=== PATIENT | female | born 1930 | race African-American/Black ===

== ENCOUNTER 2017-01-29 16:40 | Inpatient (IN) | payer MEDICARE, OTHER ==
[~2017-01-29] VITALS: Ht 157.5 cm; Wt 49.7 kg
[2017-01-29] MEDS ORDERED: INSULIN REGULAR, HUMAN 100 UNITS/ML IVP ONE (17:00)
[2017-01-29] MEDS ORDERED: SODIUM CHLORIDE 0.9% 500 ML IV ONE (17:00)
[2017-01-29 17:02] LABS: GLUCOSE,POINT OF CARE 265 MG/DL (70-110)
[2017-01-29] MEDS ORDERED: SIMV20 PO (17:14)
[2017-01-29] MEDS ORDERED: AMLO-511 PO (17:14)
[2017-01-29] MEDS ORDERED: METF500T4 PO (17:14)
[2017-01-29] MEDS ORDERED: LISI-660 PO (17:14)
[2017-01-29] MEDS ORDERED: METO50 PO (17:14)
[2017-01-29] MEDS ORDERED: HYDR25TA PO (17:14)
[2017-01-29] MEDS ORDERED: IBUP-1681 PO (17:14)
[2017-01-29 17:26] LABS: BASOPHILS % (AUTO) 0.5 % (0.0-2.0); EOSINOPHILS % (AUTO) 2.6 % (1.0-6.0); HEMATOCRIT 36.8 % (36-46); HEMOGLOBIN 11.5 g/dL (12.0-16.0); LYMPHOCYTES # (AUTO) 1.7 K/uL (1.0-4.8); LYMPHOCYTES % (AUTO) 35.2 % (22.0-44.0); MEAN CORPUSCULAR HEMOGLOBIN 26.1 pg (26.0-34.0); MEAN CORPUSCULAR HGB CONC 31.2 G/dL (31.0-37.0); MEAN CORPUSCULAR VOLUME 84 fL (80-100); MONOCYTES # (AUTO) 0.6 K/uL (0.1-1.0); MONOCYTES % (AUTO) 12.2 % (2.0-9.0); NEUTROPHILS # (AUTO) 2.4 K/uL (1.8-7.7); NEUTROPHILS % (AUTO) 49.5 % (40.0-70.0); PLATELET COUNT (AUTO) 143 K/uL (150-450); RED BLOOD CELL COUNT(AUTO) 4.39 MIL/uL (4.00-5.20); RED CELL DISTRIBUTION WIDTH 14.2 % (11.5-14.5); WHITE BLOOD COUNT (AUTO) 4.9 K/uL (4.5-11.0)
[2017-01-29 17:35] LABS: ANION GAP 8 mmol/L (8-16); CALCIUM, TOTAL 9.2 mg/dL (8.8-10.5); CARBON DIOXIDE 27 mmol/L (22-29); CHLORIDE 102 mmol/L (98-107); CREATININE 1.11 mg/dL (0.60-1.30); GLOMERULAR FILTR. RATE CALC 56 mL/min (>60); POTASSIUM 4.7 mmol/L (3.5-5.1); SODIUM SERUM 137 mmol/L (136-145); UREA NITROGEN, BLOOD 24 mg/dL (7-18)
[2017-01-29 17:44] LABS: PROTHROMBIN TIME 10.7 SEC (9.4-11.6)
[2017-01-29 18:00] LABS: ALANINE AMINOTRANSFERASE 21 U/L (12-78); ALBUMIN 3.5 g/dL (3.4-5.0); ASPARTATE AMINOTRANSFERASE 22 U/L (15-37); BILIRUBIN,TOTAL 0.2 mg/dL (0.1-1.0); CREATINE KINASE, TOTAL 247 U/L (26-192); TOTAL PROTEIN, SERUM 7.3 g/dL (6.4-8.2)
[2017-01-29 18:02] LABS: APPEARANCE,URINE CLEAR (CLEAR); GLUCOSE, URINE (UA) 250 mg/dL (NEGATIVE); KETONES,URINE NEGATIVE (NEGATIVE); LEUKOCYTE ESTERASE ,URINE TRACE (NEGATIVE); OCCULT BLOOD,URINE NEGATIVE (NEGATIVE); PH,URINE 5.5 (5.0-8.0); PROTEIN,URINE TRACE (NEGATIVE)
[2017-01-29 18:05] LABS: ADD UA MICROSCOPIC YES
[2017-01-29 18:16] LABS: RBC,URINE None Seen /HPF (0-2); TRANSITIONAL EPI CELLS,URINE Few /LPF (None Seen)
[2017-01-29 18:38] LABS: ERYTHROCYTE SEDIMENTATION RATE 12 MM/HR (0-20)
[2017-01-29] MEDS ORDERED: ASPIRIN 325 MG EC TABLET PO ONE (19:15)
[2017-01-29 19:22] LABS: GLUCOSE,POINT OF CARE 181 MG/DL (70-110)
[2017-01-29 21:43] VITALS: BP 179/90
[2017-01-29] MEDS ORDERED: HydrALAZINE HCL 20 MG/ML VIAL IVP PRN (22:45)
[2017-01-29] MEDS ORDERED: DEXTROSE 50%-WATER 25 GM/50 ML SYRINGE IVP PRN (22:45)
[2017-01-29] MEDS: INSULIN ASPART 100 UNITS/ML SQ PRN (23:47)
[2017-01-29 23:56] VITALS: BP 173/92
[2017-01-30 00:34] LABS: CHOL/HDL RATIO 2.2 (3.9-5.7)
[2017-01-30 04:54] VITALS: BP 138/77
[2017-01-30] MEDS: INSULIN ASPART 100 UNITS/ML SQ PRN ×4 (05:45→20:31)
[2017-01-30 06:35] LABS: APPEARANCE,URINE CLEAR (CLEAR); GLUCOSE, URINE (UA) 100 mg/dL (NEGATIVE); KETONES,URINE NEGATIVE (NEGATIVE); LEUKOCYTE ESTERASE ,URINE NEGATIVE (NEGATIVE); OCCULT BLOOD,URINE SMALL (NEGATIVE); PROTEIN,URINE NEGATIVE (NEGATIVE)
[2017-01-30 06:36] LABS: ADD UA MICROSCOPIC YES
[2017-01-30 06:42] LABS: SQUAMOUS EPITHELIAL CELL,UR Rare /LPF (None Seen); WBC,URINE 0-2 /HPF (0-5)
[2017-01-30 07:41] VITALS: BP 137/78
[2017-01-30 08:07] LABS: GLUCOSE COMMENT 1 Received Meds; GLUCOSE,POINT OF CARE 182 MG/DL (70-110)
[2017-01-30 08:11] LABS: GLUCOSE COMMENT 1 Received Meds; GLUCOSE,POINT OF CARE 155 MG/DL (70-110)
[2017-01-30] MEDS: ASPIRIN 325 MG TABLET PO SCH (08:54)
[2017-01-30] MEDS: ATORVASTATIN CALCIUM 40 MG TABLET PO SCH (08:54)
[2017-01-30] MEDS: PANTOPRAZOLE SODIUM 40 MG DR TABLET PO SCH (08:54)
[2017-01-30 10:55] VITALS: BP 157/83
[2017-01-30 16:15] VITALS: BP 146/88
[2017-01-30 19:15] VITALS: BP 130/78
[2017-01-30] MEDS ORDERED: INSULIN ASPART 100 UNITS/ML SQ ONE (21:00)
[2017-01-30 23:59] VITALS: BP 120/94
[2017-01-31 03:57] VITALS: BP 143/85
[2017-01-31 05:32] LABS: GLUCOSE,POINT OF CARE 186 MG/DL (70-110)
[2017-01-31 05:32] LABS: GLUCOSE,POINT OF CARE 176 MG/DL (70-110)
[2017-01-31 05:37] LABS: GLUCOSE COMMENT 1 Received Meds; GLUCOSE,POINT OF CARE 400 MG/DL (70-110)
[2017-01-31] MEDS: INSULIN ASPART 100 UNITS/ML SQ PRN ×2 (05:59→12:03)
[2017-01-31 07:24] VITALS: BP 141/85
[2017-01-31] MEDS: PANTOPRAZOLE SODIUM 40 MG DR TABLET PO SCH (08:07)
[2017-01-31] MEDS: ASPIRIN 325 MG TABLET PO SCH (08:07)
[2017-01-31] MEDS: ATORVASTATIN CALCIUM 40 MG TABLET PO SCH (08:07)
[2017-01-31 10:59] VITALS: BP 139/78
[2017-01-31 15:01] VITALS: BP 143/100
[2017-02-01 01:36] LABS: GLUCOSE COMMENT 1 Received Meds; GLUCOSE,POINT OF CARE 165 MG/DL (70-110)
[2017-02-01 01:52] LABS: GLUCOSE,POINT OF CARE 298 MG/DL (70-110)
== END 2017-01-31 15:50 | disposition home or self-care (01) | DRG 69 ==
LOC: EMS 16:42 → 5N 20:24
PROVIDERS: ADMIT Internal Medicine; ATTEND Internal Medicine
DX: G45.9 Transient cerebral ischemic attack, unspecified (principal); E11.9 Type 2 diabetes mellitus without complications; E78.00 Pure hypercholesterolemia, unspecified; E78.5 Hyperlipidemia, unspecified; F80.81 Childhood onset fluency disorder; I10 Essential (primary) hypertension; I25.10 Atherosclerotic heart disease of native coronary artery without angina pectoris; R74.8 Abnormal levels of other serum enzymes; M19.90 Unspecified osteoarthritis, unspecified site; J32.0 Chronic maxillary sinusitis; M06.9 Rheumatoid arthritis, unspecified; Z88.2 Allergy status to sulfonamides; Z91.041 Radiographic dye allergy status; Z79.899 Other long term (current) drug therapy; Z86.73 Personal history of transient ischemic attack (TIA), and cerebral infarction without residual deficits; Z95.1 Presence of aortocoronary bypass graft; Z90.49 Acquired absence of other specified parts of digestive tract; Z82.49 Family history of ischemic heart disease and other diseases of the circulatory system; Z79.84 Long term (current) use of oral hypoglycemic drugs
CPT/HCPCS: 70496; 70551; 82962; 85651; 87081; 87086; 93005; 93306; 93880; 96360; 96361; 99291; J0360; J1815; J7040

== ENCOUNTER 2019-08-24 10:23 | Emergency (ER) | payer MEDICARE, OTHER ==
[~2019-08-24] VITALS: Ht 162.6 cm; Wt 51.8 kg
[~2019-08-24 10:23] MED LIST: AMLO5TAB9 PO; HYDR25TA PO; IBUP-2271 PO; IBUP200C5 PO; LISI-660 PO; METF-446 PO; METF-960 PO; METO50 PO; SIMV-260 PO
[2019-08-24 10:47] VITALS: BP 116/85
[2019-08-24] MEDS ORDERED: IBUPROFEN 600 MG TABLET PO ONE (11:00)
[2019-08-24] MEDS ORDERED: ACETAMINOPHEN 325 MG TABLET PO ONE (11:00)
== END 2019-08-24 12:51 | disposition home or self-care (01) ==
LOC: EMS 10:25
DX: G89.29 Other chronic pain (principal); M25.552 Pain in left hip; M54.5 Low back pain; E11.9 Type 2 diabetes mellitus without complications; E78.00 Pure hypercholesterolemia, unspecified; I10 Essential (primary) hypertension; Z86.73 Personal history of transient ischemic attack (TIA), and cerebral infarction without residual deficits; Z98.890 Other specified postprocedural states; Z95.1 Presence of aortocoronary bypass graft; Z79.899 Other long term (current) drug therapy; Z79.84 Long term (current) use of oral hypoglycemic drugs; Z88.2 Allergy status to sulfonamides; Z91.041 Radiographic dye allergy status